=== PATIENT | female | born 1980 | race Caucasian/White ===

== ENCOUNTER 2019-07-29 14:15 | Emergency (ER) | payer OTHER, SELFPAY ==
[2019-07-29] VITALS (7 sets, daily range): BP systolic 102–115; BP diastolic 59–83; PULSE 94–117; RESP 18–23; TEMP 36.3–36.8; O2SAT 96–100
--- NOTE | ~2019-07-29 | XR_ITS ---
EXAMINATION: XR chest 2V DATE: 07/29/2019 16:45 INDICATION: Dizziness TECHNIQUE: PA and lateral views of the chest are obtained. COMPARISON: None available FINDINGS: The lungs are free of acute opacities. There is no pleural effusion or pneumothorax. The ca rdiomediastinal silhouette is normal. The visualized bones and soft tissues are unremarkable. IMPRESSION: 1. No acute cardiopulmonary abnormality. Reviewed, dictated and finalized at location A.
--- NOTE | ~2019-07-29 | CT_ITS ---
EXAMINATION: CT abdomen pelvis w con DATE: 07/29/2019 16:46 INDICATION: Abdominal pain. Anemia. Dizziness. TECHNIQUE: Computed tomography (CT) of the abdomen and pelvis was performed with 100 cc Omnipaque 350 intravenous contrast. Automated exposure control and iterative reconstruction technique were employe d. Exam dose: 440.27 mGy-cm total exam DLP. COMPARISON: 07/28/2021 view chest FINDINGS: No infiltrate or consolidation at the lung bases. Heart size is within normal range. There is a moderate sliding hiatal hernia. There is moderately large amount of ascites. The free fluid attenuation is relatively high, measuring up into the 40 and 58 Hounsfield unit range. Given the history of anemia, intraperitoneal hemorrhage must be considered. There is a possible splenic laceration posterolaterally (series 3 image 35). C onsider paracentesis for diagnostic purposes. The liver, pancreas, adrenal glands and kidneys are unremarkable. The gallbladder is present. No bile duct or pancreatic duct dilatation. There is an IUD in the uterus. 3 cm left ovarian cyst. Unremarkable urinary bladder. Normal caliber of the abdominal aorta. No intraperitoneal or retroperitoneal mass lesion or adenopath y is evident. Included skeletal structures are unremarkable. No rib fracture is noted. IMPRESSION: Large amount of fluid in the peritoneal cavity with relatively high attenuation suggesti ng large hemoperitoneum, possibly secondary to what appears to be a splenic laceration Dr. Jarrell telephoned the results to emergency room composition Dr. Emery on 07/29/2019 at 1715 hours , with recommendation for surgical consult and possibly diagnostic paracentesis. Reviewed, dictated and finalized at Location A. Reviewed, dictated and finalized at location A. IMPRESSION: Large amount of fluid in the peritoneal cavity with relatively hig h attenuation suggesting large hemoperitoneum, possibly secondary to what appea rs to be a splenic laceration Dr. Jarrell telephoned the results to emergency room composition Dr. Emery on at 1715 hours, with recommendation for surgical consult and possibly d iagnostic paracentesis.
--- NOTE | 2019-07-29 14:57 | ECG_ITS ---
Measurements Intervals [place] Rate: 109 P: 50 AK: 124 QRS: 62 QRSD: 82 T: 30 QT: 270 QTc: 365 Interpretive Statements SINUS TACHYCARDIA NONSPECIFIC T-WAVE ABNORMALITY- INFERIOR LEADS ABNORMAL ECG Electronically Signed On 07-29-2019 15:21:28 CDT by Td Melton D.O.
[2019-07-29 15:45] LABS: Basophils Percent Auto 0.1 % (0.2-1.2); Eosinophils Percent Auto 0.1 % (0-4.4); Hemoglobin 7.5 g/dL (12.0-15.0); Immature Granulocyte Absolute 0.05 K/mm3 (0.00-0.031); Immature Granulocyte Percent A 0.6 % (0-0.5); Lymphocytes Absolute Auto 0.97 K/mm3 (0.9-3.2); Lymphocytes Percent Auto 11.6 % (18.3-44.2); Mean Corpuscular HGB Conc 36.1 g/dl (32-36); Mean Corpuscular Hemoglobin 33.8 pg (26-34); Mean Corpuscular Volume 93.7 fl (80-100); Mean Platelet Volume 10.8 fl (7.4-10.4); Monocytes Absolute Auto 0.9 K/mm3 (0.1-0.6); Monocytes Percent Auto 10.8 % (2.6-8.5); Neutrophils Absolute Auto 6.4 K/mm3 (1.3-6.7); Neutrophils Percent Auto 76.8 % (45.5-73.1); Platelet Count Result 174 k/mm3 (150-375); Red Blood Count 2.22 M/mm3 (4.2-5.4); Red Cell Distribution Width 12.1 % (11.5-14.5); White Blood Count 8.4 K/mm3 (4.5-10.0)
[2019-07-29 15:51] LABS: Hematocrit 20.8 % (37.0-47.0)
[2019-07-29 16:01] LABS: Alanine Aminotransferase 21 U/L (4-35); Albumin Level 3.8 g/dL (3.5-5.1); Alkaline Phosphatase 42 U/L (38-126); Aspartate Amino Transferase 28 U/L (14-36); Bilirubin,Total 0.7 mg/dL (0.2-1.3); Blood Urea Nitrogen 10 mg/dL (7-17); Calcium 9.3 mg/dL (8.4-10.2); Carbon Dioxide 25 mmol/L (22-30); Chloride 87 mmol/L (98-107); Estimated CRCL calculation 108 ml/min; Estimated Glomerular Filt Rate > 60; Glucose 156 mg/dL (65-105); Lipase 40 U/L (23-300); Potassium 4.4 mmol/L (3.4-5.0); Sodium 120 mmol/L (137-145)
[2019-07-29 16:03] LABS: Add Urine Microscopic? YES; Appearance Urine Turbid (Clear); Bacteria Urine 3+ /hpf; Bilirubin Urine Negative (Negative); Blood Urine Negative (Negative); Budding Yeast Urine Present /hpf; Color Urine Yellow (Yellow); Glucose Urine UA Negative (Negative); Ketones Urine Trace mg/dL (Negative); Leukocyte Esterase Ur 1+ LEU/UL (Negative); Mucus Urine Rare /lpf; Nitrate Urine Negative (Negative); Protein Urine 1+ mg/dL (Negative); RBC Urine 0-2 /hpf (0-2); Squamous Epithelial Cell Urine Many /hpf (Few); Urobilinogen Urine Negative mg/dL (<2.0); WBC Clumps Urine Present /HPF; WBC Urine 16-20 /hpf
[2019-07-29] MEDS: SODIUM CHLORIDE 0.9% IV 1,000 ML 999 ML IV CONT ×2 (16:14→17:33)
[2019-07-29 16:16] LABS: Prothrombin Time 12.6 Seconds (11.1-14.7)
[2019-07-29 16:17] LABS: Partial Thromboplastin Time 25.2 SECONDS (22.3-36.8)
[2019-07-29] MEDS: ONDANSETRON INJ 4 MG/2 ML VIAL IV PUSH (16:27)
--- NOTE | 2019-07-29 17:25 | ED.DIZZY ---
HPI - Dizziness General Chief Complaint: Dizziness <Isaak Perez PA-C - Last Filed: 07/29/19 17:56> Stated Complaint: lightheaded <Isaak Perez PA-C - Last Filed: 07/29/19 17:56> Time Seen by Provider: 07/29/19 15:16 <Isaak Perez PA-C - Last Filed: 07/29/19 17:56> Source: patient <ANAT Julian Last Filed: 07/29/19 17:56> Mode of arrival: ambulatory <ANAT Julian Last Filed: 07/29/19 17:56> Limitations: no limitations <ANAT Julian Last Filed: 07/29/19 17:56> History of Present Illness HPI Narrative: Patient presents with chief complaint of feeling dizzy and weak for the last day or 2. Patient states today when she stood she started feeling dizzy. Patient states she has had a few episodes of vomiting today and yesterday. Patient states she normally does not eat or drink very much but when she started feeling ill she started trying to drink more but it did not help. Patient denies cough, fever, chills. Patient reports some diffuse lower abdominal pain but states that it is not consistent or intense. Patient denies any recent falls or surgeries. Patient denies being any recent motor vehicle accidents. patient states her last abdominal surgery was a tubal ligation in May. <Isaak Perez PA-C - Last Filed: 07/29/19 17:56> Related Data Allergies/Adverse Reactions: Allergies Allergy/AdvReac Type Severity Reaction Status Date / Time No Known Allergies Allergy Verified 07/29/19 14:42 <Isaak Perez PA-C - Last Filed: 07/29/19 17:56> Review of Systems Review of Systems: Narrative: CONSTITUTIONAL: Denies fever, chills, or sweats. EYES: Denies visual changes, redness, or discharge. ENT: Denies rhinorrhea, congestion, sore throat, or otalgia. CARDIOVASCULAR: Denies chest pain, palpitations, or edema. RESPIRATORY: Denies cough or dyspnea. GASTROINTESTINAL: Reports male abdominal pain, nausea, vomiting, denies diarrhea. GENITOURINARY: Denies dysuria or hematuria. SKIN: Denies rash or itching. MUSCULOSKELETAL: Denies back pain, joint pain, or myalgia. NEUROLOGIC: Reports dizziness denies headache, numbness, or weakness. PSYCHIATRIC: Denies anxiety or depression. <Isaak Perez PA-C - Last Filed: 07/29/19 17:56> [facility] Social History Social History: Social History Gender identity (if verbalized by the patient): Female <Isaak Perez PA-C - Last Filed: 07/29/19 17:56> Exam Narrative: Exam Narrative: GENERAL: Well-appearing, well-nourished. Patient appears tired. HEAD: Normocephalic, atraumatic. EYES: PERRLA and EOMI. ENT: Nares clear, no rhinorrhea or epistaxis. Mucous membranes moist. Oropharynx without tonsillar hypertrophy exudate or other lesions. Bilateral TMs pearly petersen nonbulging NECK: Supple. No adenopathy or masses. No carotid bruits or JVD CHEST: Clear to auscultation. No respiratory distress. No wheezes rales or rhonchi HEART: Regular rate and rhythm. No murmur heard. Normal peripheral pulses. ABDOMEN: Soft, mild diffuse tenderness, no ecchymosis or abrasions noted to abdomen. Nondistended, normal active bowel sounds. EXTREMITIES: Normal range of motion. No edema. SKIN: Small bruise noted to patient's left arm and left leg. No bruising noted to patient's abdomen. Warm, dry, no rash. NEURO: No focal deficits. Alert and oriented x3. PSYCH: Normal mood and affect. <Isaak Perez PA-C - Last Filed: 07/29/19 17:56> Course Course Emergency Course: Inform patient and the family about her lab work, CT findings. Patient absolutely denies no evidence of trauma. On reexamination of the abdomen abdomen is soft nontender nondistended. We will be transferring this patient to [facility] for surgical evaluation. I discussed with Dr. Swenson who accepted the patient to the ER. Meanwhile will start O- blood. <Valentin Emery MD - Last Filed: 07/29/19 18:08> Vital Signs Vital signs: Vit
[2019-07-29] MEDS: TUBING, BLOOD SET 1 EACH XX (17:40)
[2019-07-29] MEDS: SODIUM CHLORIDE 0.9% IV 250 ML 30 ML IV CONT (17:40)
--- NOTE | 2019-07-29 17:42 | PC.NURSE ---
Addendum entered by Robert Smith RN 07/29/19 17:42: consent for blood, signed by the pt Original Note: blood consent in chartm signed by pt
== END 2019-07-29 17:55 | disposition short-term general hospital (02) ==
PROVIDERS: Physician Assistant; Emergency Provider Family Medicine
DX: S36.031A Moderate laceration of spleen, initial encounter (principal); E87.1 Hypo-osmolality and hyponatremia; D50.0 Iron deficiency anemia secondary to blood loss (chronic); Z97.5 Presence of (intrauterine) contraceptive device; R82.998 Other abnormal findings in urine; X58.XXXA Exposure to other specified factors, initial encounter
CPT/HCPCS: 36415; 36430; 71046; 74177; 80053; 81001; 81025; 83690; 84443; 85025; 85610; 85730; 86850; 86900; 86901; 86923; 87086; 87088; 93005; 96361; 96374; 99291; J2405; J7030; J7050; P9016; Q9967

== ENCOUNTER → 2020-04-27 14:17 | Outpatient (CLI) | payer OTHER, SELFPAY ==
--- NOTE | ~2020-04-27 | US_ITS ---
EXAMINATION: US soft tissue chest DATE: 04/27/2020 15:08 INDICATION: Soft tissue lump at the anterior left chest wall. TECHNIQUE: Multiple grayscale and Doppler ultrasound images of the region of concern at the left para mediastinal upper chest were obtained. COMPARISON: Chest radiograph dated 07/29/2019 FINDINGS: There is asymmetric thickening of the lateral aspect of the costochondral cartilage at the left secon d rib when compared with the contralateral anterior left costochondral cartilage on real-time imaging . There are linear and curvilinear hyperechoic regions within the thickened cartilage likely represen ting calcification. IMPRESSION: 1. Thickened cartilage at the anterior left second rib with internal calcifications. 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 Differential would include callus formation associated with a heali ng rib fracture, osteochondroma and there has been history of prior malignancy could not absolutely e xclude an expansile metastatic bone lesion. Correlate clinically and would consider CT to more defini tively assess whether the lesion is originates at the patellar cartilage and to better delineate the morphology of the bone and calcification. Reviewed, dictated and finalized at location B. NER MACHINE IMPRESSION: 1. Thickened cartilage at the anterior left second rib with internal calcificat ions. 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 Differential would incl ude callus formation associated with a healing rib fracture, osteochondroma and there has been history of prior malignancy could not absolutely exclude an exp ansile metastatic bone lesion. Correlate clinically and would consider CT to mo re definitively assess whether the lesion is originates at the patellar cartila ge and to better delineate the morphology of the bone and calcification.
== END ==
DX: R22.2 Localized swelling, mass and lump, trunk (principal)
CPT/HCPCS: 76604

== ENCOUNTER → 2020-05-04 14:31 | Outpatient (CLI) | payer OTHER, SELFPAY ==
--- NOTE | ~2020-05-04 | CT_ITS ---
EXAMINATION: CT chest w con DATE: 05/04/2020 15:18 INDICATION: Localized swelling. Mass. TECHNIQUE: Computed tomography (CT) of the chest was performed with 75 cc Omnipaque 350 intravenous c ontrast. The dose-length product was 213.06 mGy-cm. Automated exposure control and iterative reconstr uction technique were employed. COMPARISON: CT abdomen dated 07/29/2019 and soft tissue ultrasound dated 04/27/2020 FINDINGS: No thoracic lymphadenopathy. No significant pleural or pericardial effusion. Heart size is normal. There are metallic structures in the left upper abdomen, possibly embolization coils. Fatty i nfiltration of the liver. No thoracic lymphadenopathy. No evidence for aortic aneurysm or dissection. No significant pleural or pericardial effusion. There is dependent atelectasis. No endobronchial les ions. Small hiatal hernia. There is a low-density exophytic mass originating from the superior latera l margin of the spleen measuring up to 2.6 cm, likely sequela of previous splenic hemorrhage. Fatty i nfiltration of the liver. No pneumothorax. No suspicious pulmonary nodules/masses. There is deformity of the left second rib anteriorly, suspicious for healing fracture. IMPRESSION: 1. No acute cardiopulmonary disease. 2: Deformity of the left second rib anteriorly, suspicious for healing fracture. This corresponds to the area of abnormality seen on previous ultrasound dated 04/27/2020. Follow-up CT in 3 months recom mended to assess for interval change. Reviewed, dictated and finalized at location A. WASHER IMPRESSION: 1. No acute cardiopulmonary disease. 2: Deformity of the left second rib anteriorly, suspicious for healing fractur e. This corresponds to the area of abnormality seen on previous ultrasound date d 04/27/2020. Follow-up CT in 3 months recommended to assess for interval stevens e.
== END ==
DX: R22.2 Localized swelling, mass and lump, trunk (principal)
CPT/HCPCS: 71260; Q9967

== ENCOUNTER → 2020-08-20 15:52 | Outpatient (CLI) | payer OTHER, SELFPAY ==
--- NOTE | ~2020-08-20 | CT_ITS ---
EXAMINATION: CT diagnostic chest w con DATE: 08/20/2020 16:24 INDICATION: Mass in the anterior left upper chest. TECHNIQUE: Transaxial computed tomographic images of the chest were obtained after the administration of 75 cc of Omnipaque 350 intravenous contrast. The dose-length product (DLP) was 194.53 mGy-cm. Ite rative reconstruction was used. COMPARISON: 05/04/2020 FINDINGS: There is a healed fracture of the left second rib near the costochondral junction correspon ding to the area of clinical concern. The lungs are free of acute opacities. There is no pleural effu dora or pneumothorax. No pathologically enlarged thoracic lymph nodes are identified. The heart size is normal. There is a moderate size sliding hiatal hernia. There are embolization coils in the left u pper quadrant. IMPRESSION: 1. Healed fracture of the left second rib in the area of clinical concern. Reviewed, dictated and finalized at location A.
== END ==
DX: R22.2 Localized swelling, mass and lump, trunk (principal)
CPT/HCPCS: 71260; Q9967